=== PATIENT | female | born 1990 | race Two or more races ===

== ENCOUNTER 2018-07-19 13:46 | Emergency (ER) | payer MEDICAID, OTHER ==
[~2018-07-19] VITALS: Ht 149.9 cm; Wt 72.6 kg
[2018-07-19 16:14] VITALS: BP 108/60
== END 2018-07-19 17:56 | disposition home or self-care (01) ==
LOC: ER 13:46
DX: S46.911A Strain of unspecified muscle, fascia and tendon at shoulder and upper arm level, right arm, initial encounter (principal); S09.90XA Unspecified injury of head, initial encounter; W19.XXXA Unspecified fall, initial encounter; Y93.89 Activity, other specified; Y99.8 Other external cause status; Y92.89 Other specified places as the place of occurrence of the external cause
CPT/HCPCS: 70450; 71101; 73020

== ENCOUNTER 2021-04-12 13:52 | Emergency (ER) | payer MEDICAID ==
[~2021-04-12] VITALS: Ht 152.4 cm; Wt 63.5 kg
[2021-04-12 15:18] VITALS: BP 117/75
[2021-04-12 16:36] LABS: Urine Bacteria FEW /hpf (None Seen); Urine Blood Negative /uL (Negative); Urine Mucus FEW (None Seen); Urine Specific Gravity 1.014 (1.001-1.035); Urine WBC 1 /hpf (0 - 5)
[2021-04-12 17:04] LABS: Albumin 4.3 g/dL (3.4-5.0); Calcium 9.7 mg/dL (8.5-10.1); Potassium 4.1 mmol/L (3.5-5.1)
[2021-04-12 17:08] LABS: BUN/Creatinine Ratio 21.4; Bilirubin, Total 0.6 mg/dL (0.2-1.0); Total Protein 8.9 g/dL (6.4-8.2)
[2021-04-12 17:15] LABS: Basophils # (auto) 0.1 10 ^3/uL (0-0.2); Basophils % (auto) 0.5 % (0.0-2.0); Eosinophils # (auto) 0.1 10 ^3/uL (0-0.8); Eosinophils % (auto) 1.2 % (0.0-7.0); Hematocrit 46.4 % (36.0-46.0); Lymphocytes # (auto) 2.9 10 ^3/uL (0.4-5.4); Lymphocytes % (auto) 29.6 % (10.0-50.0); Mean Corpuscular Hemoglobin 31.2 pg (28.0-32.0); Mean Corpuscular Hgb Conc. 34.6 g/dL (32.0-36.0); Mean Corpuscular Volume 90.4 fL (80.0-100.0); Monocytes # (auto) 0.5 10 ^3/uL (0-1.3); Monocytes % (auto) 5.5 % (0.0-12.0); Neutrophils # (auto) 6.2 10 ^3/uL (1.6-8.6); Neutrophils % (auto) 63.2 % (37.0-80.0); Nucleated Red Blood Cells % 0.2 %; Red Blood Cells 5.13 10^6/uL (4.0-5.20); Red Cell Distribution Width 12.7 % (11.8-14.3); White Blood Cell 9.8 10^3/uL (4.4-10.8)
== END 2021-04-12 17:34 | disposition home or self-care (01) ==
LOC: ER 13:52
DX: E11.65 Type 2 diabetes mellitus with hyperglycemia (principal)
CPT/HCPCS: 36415; 80053; 81001; 84702; 85025

== ENCOUNTER 2023-09-17 14:52 | Emergency (ER) | payer MEDICAID ==
[~2023-09-17] VITALS: Ht 149.9 cm; Wt 63.2 kg
[2023-09-17 15:58] LABS: Basophils # (auto) 0 10 ^3/uL (0-0.2); Basophils % (auto) 0.5 % (0.0-2.0); Eosinophils # (auto) 0.1 10 ^3/uL (0-0.8); Eosinophils % (auto) 1.4 % (0.0-7.0); Hematocrit 46.3 % (36.0-46.0); Lymphocytes # (auto) 2.4 10 ^3/uL (0.4-5.4); Lymphocytes % (auto) 26.5 % (10.0-50.0); Mean Corpuscular Hemoglobin 31.3 pg (28.0-32.0); Mean Corpuscular Hgb Conc. 34.5 g/dL (32.0-36.0); Mean Corpuscular Volume 90.9 fL (80.0-100.0); Monocytes # (auto) 0.4 10 ^3/uL (0-1.3); Monocytes % (auto) 4.8 % (0.0-12.0); Neutrophils # (auto) 6.1 10 ^3/uL (1.6-8.6); Neutrophils % (auto) 66.8 % (37.0-80.0); Nucleated Red Blood Cells % 0.1 %; Red Blood Cells 5.09 10^6/uL (4.0-5.20); Red Cell Distribution Width 12.8 % (11.8-14.3); White Blood Cell 9.2 10^3/uL (4.4-10.8)
[2023-09-17 16:14] LABS: Alanine Aminotransferase 39 U/L (7-40); Albumin 4.7 g/dL (3.2-4.8); Alkaline Phosphatase 63 U/L (46-116); Anion Gap 6 (5-15); Aspartate Aminotransferase 21 U/L (13-40); BUN/Creatinine Ratio 14.1 (10.0-20.0); Bilirubin, Total 0.9 mg/dL (0.2-1.0); Blood Urea Nitrogen 9 mg/dL (9-23); Calcium 10.1 mg/dL (8.5-10.1); Carbon Dioxide 27 mmol/L (20-30); Chloride 104 mmol/L (98-107); Glucose 252 mg/dL (74-106); Magnesium 1.9 mg/dL (1.6-2.6); Potassium 3.7 mmol/L (3.5-5.1); Sodium 137 mmol/L (136-145); Total Protein 7.6 g/dL (5.7-8.2)
[2023-09-17 16:31] LABS: Urine Bacteria None Seen /hpf (None Seen)
[2023-09-17 16:52] LABS: Urine Blood Negative /uL (Negative); Urine Clarity Clear (Clear); Urine Color Light-Yellow (Yellow); Urine Protein, UAD Negative (Negative); Urine Specific Gravity 1.045 (1.001-1.035); Urine Urobilinogen Normal (Negative); Urine WBC <1 /hpf (0 - 5); Urine pH 5.5 (5.0-9.0)
[2023-09-17 17:01] LABS: Amphetamine Screen, Urine Neg (NEGATIVE); Barbiturate Scree,Urine Neg (NEGATIVE); Benzodiazephine Screen, Urine Neg (NEGATIVE); Cocaine Screen, Urine Neg (NEGATIVE); Opiate Scree,Urine Neg (NEGATIVE)
[2023-09-17 17:02] LABS: Cannabinoid Screen, Urine Neg (NEGATIVE); Phencyclidine Screen, Urine Neg (NEGATIVE)
[2023-09-17 18:24] VITALS: TEMP 97.7
[2023-09-17] MEDS: ASPirin 325 MG TAB PO ONE (18:30)
[2023-09-17] MEDS: NITROGLYCERIN 0.4 MG SL TAB SL ONE (18:30)
[2023-09-17 19:09] VITALS: BP 113/69; PULSE 71; RESP 20; O2SAT 98
== END 2023-09-17 19:15 | disposition home or self-care (01) ==
LOC: ER 14:56
DX: E07.9 Disorder of thyroid, unspecified (principal); R10.2 Pelvic and perineal pain; R07.89 Other chest pain; E11.9 Type 2 diabetes mellitus without complications; Z98.890 Other specified postprocedural states; Z79.899 Other long term (current) drug therapy
CPT/HCPCS: 36415; 71045; 80053; 80307; 81001; 83735; 83880; 84443; 84484; 84702; 85025; 85379; 93005

== ENCOUNTER 2024-10-13 20:32 | Inpatient (IN) | payer MEDICAID ==
[~2024-10-13] VITALS: Ht 149.9 cm; Wt 64.9 kg
--- NOTE | 2024-10-13 21:13 | ED.PDOC ---
General HPI Comments 34 year old female with a Hx of DM, High Lipids, and SHx of an Appendectomy, and a Cholecystectomy presents to the ED for the c/c of Right Sided Flank pain w/ associated RUQ ABD pain. Pt states that her pain started at approx 0100 yesterday morning, and has progressively worsened prompting her visit to the ED. Pt states that she did have an US done 2x weeks ago, but could not recall the results. No other associated symptoms, modifiers, recent injuries or sick contacts present at this time. Chief Complaint: Abdominal Pain Time Seen by MD: 21:09 Primary Care Provider: UNKNOWN Reviewed notes: Nurses Notes, Medications, Allergies Allergies: Coded Allergies: NO KNOWN ALLERGIES (Unverified , 07/19/18) Information Source: Patient Mode of Arrival: Ambulatory Severity: Moderate Inability to void: Mild Timing: Hours Duration: Since onset, Hours Has not urinated for: Hours Prehospital treatment: None Onset: Spontaneous Symptoms: None History of: None Location: Abdomen, (R) Flank associated signs and symptoms: Abdominal Pain, Nausea Past Medical History PAST MEDICAL HISTORY: DM, High Lipids Surgical History: Appendectomy, Cholecystectomy JOB COACH/JOB DEVELOPER History: Denies all JOB COACH/JOB DEVELOPER Hx Family History Family History: Reviewed,noncontributory to illness, Family hx of DM Social History Smoker: Non-Smoker Alcohol: Denies ETOH Use Drugs: Denies Drug Use Lives In: Home All Other Systems: Reviewed and Negative (comprehensive exam was negavtive accept what is in the HPI) Physical Exam General Appearance: No Apparent Distress, Obese HEENT: Other (Pupils and face symmetric. Moist mucous membranes.) Neck: Full Range of Motion, Normal Inspection Respiratory: Lungs Clear, No Accessory Muscle Use, No Respiratory Distress, Normal Breath Sounds Cardiovascular: No Edema, No JVD, Regular Rate/Rhythm Breast Exam: Deferred Gastrointestinal: RUQ, Soft, Tenderness (Right upper flank), Other (No CVA tenderness) Genitalia: Deferred Pelvic: Deferred Rectal: Deferred Extremities: Normal inspection, Normal range of motion, Non-tender, No pedal edema Neurologic: Alert (Oriented x4), Normal Affect, Normal Mood, Other (Ambulatory) Cerebellar Function: NOT DONE Reflexes: NOT DONE Skin: Dry, Normal Color, Warm Lymphatic: NOT DONE Was a procedure done? Was a procedure done?: No Differential Diagnosis Kidney stone (Female): Bowel obstruction, Ectopic , Hepatitis, Musculoskeletal pain, Ovarian torsion, Pancreatitis, Renal failure, Strain, Urinary obstruction, Urolithiasis Kidney stone (Male): Hepatitis Urinary Problem (Female): Impaction, Intrauterine , Urinary retention, Urolithiasis, UTI Other Differential Diagnosis Colitis, diverticular disease, biliary obstruction, among others X-Ray, Labs, Meds, VS Vital Signs Date Time Temp Pulse Resp B/P (MAP) Pulse Ox O2 Delivery O2 Flow Rate FiO2 10/13/24 22:19 64 16 110/64 10/13/24 20:50 97.9 68 18 123/76 (92) 98 97.9 Lab Test 10/13/24 21:48 10/13/24 21:14 10/13/24 21:00 10/13/24 20:59 Range/Units POC Glucose 349 H 315 H 70-106 mg/dl White Blood Count 9.3 4.4-10.8 10^3/uL Red Blood Count 5.33 H 4.0-5.20 10^6/uL Hemoglobin 16.7 H 12.2-16.2 g/dL Hematocrit 47.8 H 36.0-46.0 % Mean Corpuscular Volume 89.7 80.0-100.0 fL Mean Corpuscular Hemoglobin 31.4 28.0-32.0 pg Mean Corpuscular Hemoglobin Concent 34.9 32.0-36.0 g/dL Red Cell Distribution Width 12.5 11.8-14.3 % Platelet Count 319 140-450 10^3/uL Mean Platelet Volume 8.1 6.9-10.8 fL Neutrophils (%) (Auto) 63.9 37.0-80.0 % Lymphocytes (%) (Auto) 28.9 10.0-50.0 % Monocytes (%) (Auto) 5.5 0.0-12.0 % Eosinophils (%) (Auto) 1.1 0.0-7.0 % Basophils (%) (Auto) 0.6 0.0-2.0 % Neutrophils # (Auto) 6.0 1.6-8.6 10 ^3/uL Lymphocytes # (Auto) 2.7 0.4-5.4 10 ^3/uL Monocytes # (Auto) 0.5 0-1.3 10 ^3/uL Eosinophils # (Auto) 0.1 0-0.8 10 ^3/uL Basophils # (Auto) 0.1 0-0.2 10 ^3/uL Nucleated Red Blood Cells 0.1 % Sodium Level 135 L 136-145 mmol/L Potassium Level 3.7 3.5-5.1 mmol/L Chloride Level 99 98-107 mmol/L Carbon Dioxide Level 26 20-31 mmol/L Anion Gap 10 5-15 Blood Urea Nitrogen 8 L 9-23 mg/dL Creatinine 0.72 0.550-1.02 mg/dL Glomerular Filtration Rate Calc 111 >90 mL/min BUN/Creatinine Ratio 11.1 10.0-20.0 Serum Glucose 292 H 74-106 mg/dL Calcium Level 10.4 8.7-10.4 mg/dL Total Bilirubin 0.9 0.2-1.0 mg/dL Aspartate Amino Transferase (AST) 19 13-40 U/L Alanine Aminotransferase (ALT) 36 7-40 U/L Alkaline Phosphatase 69 46-116 U/L Total Protein 8.4 H 5.7-8.2 g/dL Albumin 5.1 H 3.2-4.8 g/dL Lipase 80 H 12-53 U/L Urine Color Yellow Yellow Urine Clarity Clear Clear Urine pH 5.0 5.0-9.0 Urine Specific [place] 1.048 H 1.001-1.035 Urine Protein Negative Negative Urine Ketones Negative Negative Urine Blood Negative Negative /uL Urine Nitrite Negative Negative Urine Bilirubin Negative Negative Urine Urobilinogen Normal Negative mg/dL Urine Leukocyte Esterase Negative Negative /uL Urine RBC <1 0 - 4 /hpf Urine Microscopic WBC < 1 0-5 /HPF Urine Squamous Epithelial Cells Mod <5 /hpf Urine Bacteria None seen None Seen /hpf Urine Glucose 4+ H Normal mg/dL Urine Test Negative Negative Current Medications Medications (Trade) Dose Ordered Sig/Chastity Route Start Time Stop Time Status Last Admin Sodium Chloride 2,000 ml @ 1,000 mls/hr Q2H ONCE IV 10/13/24 21:15 10/13/24 23:14 10/13/24 22:18 Ondansetron HCl (Zofran) 4 mg ONCE ONCE IV 10/13/24 21:15 10/13/24 21:16 DC 10/13/24 22:19 Morphine Sulfate 4 mg ONCE ONCE IV 10/13/24 21:15 10/13/24 21:16 DC 10/13/24 22:19 Insulin Human Regular (InsuLIN R) 4 units ONCE ONCE IV 10/13/24 21:15 10/13/24 21:16 DC 10/13/24 22:19 PATIENT: ALEJANDRO BAILEY ACCT: [id number] UNIT: [id number] : 1990 LOC: ER ROOM / BED: / AGE / SEX: 34 / F ADM STATUS: REG ER SERVICE 05 ORDERING PHYSICIAN: AUGUST CONTRERAS MD PROCEDURE(s): ABPL - CT AB PEL WO CON-NO ORAL OR IV REASON: RUQ pain ORDER NUMBER(s): [id number], ACCESSION NUMBER(s): [id number] CT SCAN ABDOMEN AND PELVIS WITHOUT CONTRAST CLINICAL HISTORY: RUQ pain TECHNIQUE: Helical axial images are obtained from the lung bases through the pelvis without oral contrast. No intravenous contrast was administered. Coronal and sagittal reformatted images were generated from thin section reconstructions. One or more of the following radiation dose reduction techniques were used for this examination: automated exposure control, adjustment of the mA and/or kV according to patient size, use of iterative reconstruction technique. COMPARISON: None FINDINGS: LOWER THORAX: Lung bases are grossly clear. ABDOMEN AND PELVIS: Evaluation of visceral and vascular structures is limited due to lack of contrast administration. As visualized, the unenhanced liver, spleen, pancreas and adrenals appear grossly unremarkable. The gallbladder is surgically absent. No hydroureteronephrosis or sizable, obstructing urinary tract calculi identified. No evidence of abdominal aortic aneurysm. No evidence of bowel obstruction. The appendix is not visualized and may be surgically absent. No free intraperitoneal air or fluid identified. No sizable bladder calculus. T-shaped intrauterine device noted within the fundus. No destructive osseous lesions identified. IMPRESSION: No bowel obstruction, free intraperitoneal air/fluid or sizable inflammatory collections identified on this noncontrast examination. X-Ray, Labs, Meds, VS Comment 34-year-old female with a history of diabetes, dyslipidemia and status post appendectomy and cholecystectomy complaining of right upper quadrant pain radiating to the right flank Vitals unremarkable Exam remarkable for right upper quadrant and right upper flank tenderness to palpation Rhythm strip independently interpreted by me: Sinus rhythm, rate 68, no ectopy. CT abdomen and pelvis IMPRESSION: No bowel obstruction, free intraperitoneal air/fluid or sizable inflammatory collections identified on this noncontrast examination. CBC unremarkable, metabolic panel remarkable for sodium 135, glucose 292, lipase elevated at 80, urine negative, UA 4+ glucose, otherwise unremarkable Patient treated with the following in the ED: 2 L 0.9 normal saline IV bolus, morphine 4 mg IV, Zofran 4 mg IV, regular insulin 4 units IV On re-evaluation, pain has improved. Vitals were stable. Plan is to admit the patient for pain control and GI evaluation. Time of 1ST Reevaluation: 21:39 Reevaluation 1ST: Unchanged Patient Education/Counseling: Diagnosis, Treatment, Need For Follow Up Family Education/Counseling: No Family Present SEPSIS Sepsis Screen Date sepsis recognized/suspect: Oct 13, 2024 Time Sepsis recognized/suspect: 2049 Recent Procedure: No On Antibiotic Therapy: No Respiratory Rate >20: No Heart Rate >90: No Temp<36 C (96.8 F) or >38.3 C: No SBP <90 or MAP <65 mmHG: No New Acute Mental Status Change: No Is the patient on CPAP, BIPAP,: No Physician Orders Ct Ab Pel Wo Con-No Oral Or Iv (10/13/24 21:06) Sodium Chloride 0.9% (10/13/24 21:15) Vital Signs Date Time Temp Pulse Resp B/P (MAP) Pulse Ox O2 Delivery O2 Flow Rate FiO2 10/13/24 22:19 64 16 110/64 10/13/24 20:50 97.9 68 18 123/76 (92) 98 97.9 Laboratory Tests Test 10/13/24 21:14 White Blood Count 9.3 10^3/uL (4.4-10.8) Medications Medications Dose Ordered Sig/Chastity Route Start Time Stop Time Status Last Admin Dose Admin Insulin Human Regular 4 units ONCE ONCE IV 10/13/24 21:15 10/13/24 21:16 DC 10/13/24 22:19 Morphine Sulfate 4 mg ONCE ONCE IV 10/13/24 21:15 10/13/24 21:16 DC 10/13/24 22:19 Ondansetron HCl 4 mg ONCE ONCE IV 10/13/24 21:15 10/13/24 21:16 DC 10/13/24 22:19 Sodium Chloride 2,000 ml @ 1,000 mls/hr Q2H ONCE IV 10/13/24 21:15 10/13/24 23:14 10/13/24 22:18 Departure 1 Departure Time of Disposition: 22:33 Impression: Primary Impression: Acute pancreatitis Qualified Codes: K85.90 - Acute pancreatitis without necrosis or infection, unspecified Disposition: 09 ADMITTED INPATIENT Admit to: Med Surg Condition: Guarded Critical Care Note Critical Care Time?: No Stability Stability form required: No Heart Score Heart Score: Heart Score Response (Comments) Value History N/A 0 EKG N/A 0 Age N/A 0 Risk Factors N/A 0 Troponin N/A 0 Total 0 I personally scribed for AUGUST CONTRERAS MD ([facility]) on 10/13/24 at 21:13. Electronically submitted by Paulo Wei ([email or web address]). I personally scribed for AUGUST CONTRERAS MD ([facility]) on 10/13/24 at 22:22. Electronically submitted by Paulo Wei ([email or web address]). I personally scribed for AUGUST CONTRERAS MD ([facility]) on 10/13/24 at 22:35. Electronically submitted by Paulo Wei ([email or web address]). AUGUST CONTRERAS MD Oct 13, 2024 21:13
[2024-10-13 21:50] LABS: Hematocrit 47.8 % (36.0-46.0); Hemoglobin 16.7 g/dL (12.2-16.2); Mean Corpuscular Hemoglobin 31.4 pg (28.0-32.0); Mean Corpuscular Volume 89.7 fL (80.0-100.0); Nucleated Red Blood Cells % 0.1 %
[2024-10-13 22:03] LABS: Alanine Aminotransferase 36 U/L (7-40); Alkaline Phosphatase 69 U/L (46-116); Anion Gap 10 (5-15); BUN/Creatinine Ratio 11.1 (10.0-20.0); Calcium 10.4 mg/dL (8.7-10.4); Carbon Dioxide 26 mmol/L (20-31); Chloride 99 mmol/L (98-107); Potassium 3.7 mmol/L (3.5-5.1)
[2024-10-13 22:04] LABS: Bilirubin, Total 0.9 mg/dL (0.2-1.0)
[2024-10-13 22:05] LABS: Albumin 5.1 g/dL (3.2-4.8); Blood Urea Nitrogen 8 mg/dL (9-23); Glucose 292 mg/dL (74-106); Lipase 80 U/L (12-53); Sodium 135 mmol/L (136-145); Total Protein 8.4 g/dL (5.7-8.2)
[2024-10-13 22:08] LABS: Urine Protein, UAD Negative (Negative)
[2024-10-13] MEDS: SODIUM CHLORIDE 0.9% 2,000 ML IV ONE (22:18)
[2024-10-13] MEDS: ONDANSETRON HCL 4 MG/2 ML VIAL IV ONE (22:19)
[2024-10-13] MEDS: InsuLIN REG 1unit/0.01ml Soln (100units/ml) IV ONE (22:19)
[2024-10-13] MEDS: MORPHINE SULFATE 4 MG/ML SYR/VIAL IV ONE (22:19)
--- NOTE | 2024-10-13 22:19 | DVH ---
CT SCAN ABDOMEN AND PELVIS WITHOUT CONTRAST CLINICAL HISTORY: RUQ pain TECHNIQUE: Helical axial images are obtained from the lung bases through the pelvis without oral cont rast. No intravenous contrast was administered. Coronal and sagittal reformatted images were generate d from thin section reconstructions. One or more of the following radiation dose reduction techniques were used for this examination: automated exposure control, adjustment of the mA and/or kV according to patient size, use of iterative reconstruction technique. COMPARISON: None FINDINGS: LOWER THORAX: Lung bases are grossly clear. ABDOMEN AND PELVIS: Evaluation of visceral and vascular structures is limited due to lack of contrast administration. As visualized, the unenhanced liver, spleen, pancreas and adrenals appear grossly unremarkable. The g allbladder is surgically absent. No hydroureteronephrosis or sizable, obstructing urinary tract calculi identified. No evidence of abdominal aortic aneurysm. No evidence of bowel obstruction. The appendix is not visualized and may be surgically absent. No buddy e intraperitoneal air or fluid identified. No sizable bladder calculus. T-shaped intrauterine device noted within the fundus. No destructive osseous lesions identified. IMPRESSION: No bowel obstruction, free intraperitoneal air/fluid or sizable inflammatory collections identified o n this noncontrast examination.
[2024-10-13] MEDS ORDERED: MORPHINE SULFATE INJ 2 MG/ml SYRG IV PRN ×2 (22:45→23:15)
[2024-10-13] MEDS ORDERED: DEXTROSE (50%) 50ML SYRG IV PRN (22:45)
--- NOTE | 2024-10-13 23:08 | DVHHP2 ---
History of Present Illness Reason for Visit: Acute abdominal pain History of Present Illness The patient is a 34-year-old female with past medical history of diabetes mellitus and hyperlipidemia who presented to [facility] ED with complaint of abdominal pain. Patient reports she has been experiencing right- sided flank pain, radiating to right upper quadrant, rating 8/10 numeric scale, getting worse that prompted this visit. Patient was seen and evaluated in the ED, laboratory data shows WBC 9.3, platelets 319, sodium 135, potassium 3.7, BUN 8, creatinine 0.72, glucose 292, calcium 10.4, protein 8.4, albumin 5.1, lipase 80, blood pressure 110/64, heart rate 65, temperature 97.9 F, O2 saturation 98% on room air. Abdomen/pelvis CT showed no obstruction, free intraperitoneal air/fluid sizable inflammatory collections identified. Please see medication orders section in the computer. On my assessment, patient denied chest pain, no headache, no dizziness, no diaphoresis, no shortness of breath, no nausea, no vomiting, no fever, no chills. Patient was admitted for further evaluation and medical management. Past Medical History DM, High Lipids Past Surgical History Appendectomy, Cholecystectomy Family History Reviewed, noncontributory to the management of this case. Past Social History The patient lives at home, denies smoking, alcohol or illicit drugs abuse. Review of Systems Constitutional: Yes: Weakness; No: Fever, Chills, Sweats, Malaise, Other Eyes: No: Pain, Vision change, Conjunctivae inflammation, Eyelid inflammation, Other, Redness ENT: No: Ear pain, Ear discharge, Nose pain, Nose discharge, Nose congestion, Mouth pain, Mouth swelling, Throat pain, Throat swelling, Other Respiratory: No: Cough, Dry, Shortness of breath, SOB with excertion, Wheezing, Hemoptysis, Pleuritic Pain, Sputum, Wheezing, Other Cardiovascular: No: Chest Pain, Palpitations, Orthopnea, Paroxysmal Noc. Dyspnea, Edema, Lt Headedness, Other Gastrointestinal: Abdominal Pain; No: Nausea, Vomiting, Diarrhea, Constipation, Melena, Hematochezia, Other Genitourinary: No Dysuria, No Frequency, No Incontinence, No Hematuria, No Retention, No Other Musculoskeletal: No: other, neck pain, shoulder pain, arm pain, back pain, hand pain, leg pain, foot pain Skin: No: Rash, Lesions, Jaundice, Bruising, Other Neurological: No: Weakness, Numbness, Incoordination, Change in speech, Confusion, Seizures, Other Allergies: Coded Allergies: NO KNOWN ALLERGIES (Unverified , 07/19/18) Medications Current Medications Medications Dose Ordered Sig/Chastity Route Start Time Stop Time Status Last Admin Dose Admin Atorvastatin Calcium 10 mg HS PO 10/14/24 22:00 Pantoprazole Sodium 40 mg DAILY IV 10/14/24 10:00 Diagnostic Test (Pha) 1 strip IQ4HR 10/14/24 00:00 Insulin Human Regular IQ4HR SC 10/14/24 00:00 Dextrose 50 ml UD PRN IV 10/13/24 22:45 Sodium Chloride 1,000 ml @ 60 mls/hr [id number] IV 10/13/24 22:45 Acetaminophen/ Hydrocodone Bitart 1 tab Q4HP PRN PO 10/13/24 22:45 Ondansetron HCl 4 mg Q4HP PRN IV 10/13/24 22:45 Docusate Sodium 100 mg BIDPRN PRN PO 10/13/24 22:45 Acetaminophen 650 mg Q6HP PRN PO 10/13/24 22:45 Morphine Sulfate 2 mg Q4HPRN PRN IV 10/13/24 22:45 Exam Vital Signs Vital Signs Date Time Temp Pulse Resp B/P (MAP) Pulse Ox O2 Delivery O2 Flow Rate FiO2 10/13/24 22:19 64 16 110/64 10/13/24 20:50 97.9 98 97.9 General Appearance: Alert, Oriented X3, Cooperative, No acute distress HEENT: Atraumatic, PERRLA, EOMI, Mucous membr. moist/pink Respiratory: Normal air movement Cardiovascular: Regular rate, Normal S1, Normal S2, No murmurs Abdominal: Normal bowel sounds, Soft, No hepatospenomegaly, No masses, Other (Reports tenderness) Extremities: No clubbing, No cyanosis, No edema, Normal pulses, No tenderness/swelling Skin: No rashes, No breakdown, No significant lesion Neuro: Normal gait, Normal speech, Strength at 5/5 X4 ext, Normal tone, Sensation intact, Cranial nerves 3-12 NL, Reflexes 2+ Psych/Mental Status: Mental status NL, Mood NL Labs/Xrays Labs Test 10/13/24 21:48 10/13/24 21:14 10/13/24 21:00 Range/Units POC Glucose 349 H 70-106 mg/dl White Blood Count 9.3 4.4-10.8 10^3/uL Red Blood Count 5.33 H 4.0-5.20 10^6/uL Hemoglobin 16.7 H 12.2-16.2 g/dL Hematocrit 47.8 H 36.0-46.0 % Mean Corpuscular Volume 89.7 80.0-100.0 fL Mean Corpuscular Hemoglobin 31.4 28.0-32.0 pg Mean Corpuscular Hemoglobin Concent 34.9 32.0-36.0 g/dL Red Cell Distribution Width 12.5 11.8-14.3 % Platelet Count 319 140-450 10^3/uL Mean Platelet Volume 8.1 6.9-10.8 fL Neutrophils (%) (Auto) 63.9 37.0-80.0 % Lymphocytes (%) (Auto) 28.9 10.0-50.0 % Monocytes (%) (Auto) 5.5 0.0-12.0 % Eosinophils (%) (Auto) 1.1 0.0-7.0 % Basophils (%) (Auto) 0.6 0.0-2.0 % Neutrophils # (Auto) 6.0 1.6-8.6 10 ^3/uL Lymphocytes # (Auto) 2.7 0.4-5.4 10 ^3/uL Monocytes # (Auto) 0.5 0-1.3 10 ^3/uL Eosinophils # (Auto) 0.1 0-0.8 10 ^3/uL Basophils # (Auto) 0.1 0-0.2 10 ^3/uL Nucleated Red Blood Cells 0.1 % Sodium Level 135 L 136-145 mmol/L Potassium Level 3.7 3.5-5.1 mmol/L Chloride Level 99 98-107 mmol/L Carbon Dioxide Level 26 20-31 mmol/L Anion Gap 10 5-15 Blood Urea Nitrogen 8 L 9-23 mg/dL Creatinine 0.72 0.550-1.02 mg/dL Glomerular Filtration Rate Calc 111 >90 mL/min BUN/Creatinine Ratio 11.1 10.0-20.0 Serum Glucose 292 H 74-106 mg/dL Calcium Level 10.4 8.7-10.4 mg/dL Total Bilirubin 0.9 0.2-1.0 mg/dL Aspartate Amino Transferase (AST) 19 13-40 U/L Alanine Aminotransferase (ALT) 36 7-40 U/L Alkaline Phosphatase 69 46-116 U/L Total Protein 8.4 H 5.7-8.2 g/dL Albumin 5.1 H 3.2-4.8 g/dL Lipase 80 H 12-53 U/L Urine Color Yellow Yellow Urine Clarity Clear Clear Urine pH 5.0 5.0-9.0 Urine Specific [employer] 1.048 H 1.001-1.035 Urine Protein Negative Negative Urine Ketones Negative Negative Urine Blood Negative Negative /uL Urine Nitrite Negative Negative Urine Bilirubin Negative Negative Urine Urobilinogen Normal Negative mg/dL Urine Leukocyte Esterase Negative Negative /uL Urine RBC <1 0 - 4 /hpf Urine Microscopic WBC < 1 0-5 /HPF Urine Squamous Epithelial Cells Mod <5 /hpf Urine Bacteria None seen None Seen /hpf Urine Glucose 4+ H Normal mg/dL Urine Test Negative Negative PATIENT: ALEJANDRO BAILEY ACCT: [id number] UNIT: [id number] : 1990 LOC: ER ROOM / BED: / AGE / SEX: 34 / F ADM STATUS: REG ER SERVICE 05 ORDERING PHYSICIAN: AUGUST CONTRERAS MD PROCEDURE(s): ABPL - CT AB PEL WO CON-NO ORAL OR IV REASON: RUQ pain ORDER NUMBER(s): [id number], ACCESSION NUMBER(s): [id number] CT SCAN ABDOMEN AND PELVIS WITHOUT CONTRAST CLINICAL HISTORY: RUQ pain TECHNIQUE: Helical axial images are obtained from the lung bases through the pelvis without oral contrast. No intravenous contrast was administered. Coronal and sagittal reformatted images were generated from thin section reconstructions. One or more of the following radiation dose reduction techniques were used for this examination: automated exposure control, adjustment of the mA and/or kV according to patient size, use of iterative reconstruction technique. COMPARISON: None FINDINGS: LOWER THORAX: Lung bases are grossly clear. ABDOMEN AND PELVIS: Evaluation of visceral and vascular structures is limited due to lack of contrast administration. As visualized, the unenhanced liver, spleen, pancreas and adrenals appear grossly unremarkable. The gallbladder is surgically absent. No hydroureteronephrosis or sizable, obstructing urinary tract calculi identified. No evidence of abdominal aortic aneurysm. No evidence of bowel obstruction. The appendix is not visualized and may be surgically absent. No free intraperitoneal air or fluid identified. No sizable bladder calculus. T-shaped intrauterine device noted within the fundus. No destructive osseous lesions identified. IMPRESSION: No bowel obstruction, free intraperitoneal air/fluid or sizable inflammatory collections identified on this noncontrast examination. SEPSIS Sepsis Screen Date sepsis recognized/suspect: Oct 13, 2024 Time Sepsis recognized/suspect: 2049 Recent Procedure: No On Antibiotic Therapy: No Respiratory Rate >20: No Heart Rate >90: No Temp<36 C (96.8 F) or >38.3 C: No SBP <90 or MAP <65 mmHG: No New Acute Mental Status Change: No Is the patient on CPAP, BIPAP,: No Physician Orders Ct Ab Pel Wo Con-No Oral Or Iv (10/13/24 21:06) Sodium Chloride 0.9% (10/13/24 21:15) Consistent Carb(Ccho)Diabetes (10/14/24 Breakfast) Atorvastatin (Lipitor) (10/14/24 22:00) Pantoprazole (Protonix) (10/14/24 10:00) Glucose Blood (Accu-Chek Comfort Curve T (10/14/24 00:00) Insulin R (Human) (Insulin R) (10/14/24 00:00) Dextrose 50% Syringe (10/13/24 22:45) Allergies (10/13/24 22:39) Code Status (10/13/24 22:39) Sodium Chloride 0.9% (10/13/24 22:45) Oxygen Per Hour (10/13/24 22:39) Hydrocodone-Acet 5/325mg Tab ([place] 5/32 (10/13/24 22:45) Ondansetron Hcl (Zofran) (10/13/24 22:45) Docusate Sodium Capsule (Colace Capsule) (10/13/24 22:45) Complete Blood Count (10/14/24 04:00) Comprehensive Metabolic Panel (10/14/24 04:00) Condition: Serious (10/13/24 22:39) Acetaminophen Tablet (Tylenol Tablet) (10/13/24 22:45) Clear Liq Diet (10/14/24 Breakfast) Bedrest With Bathroom Privileg (10/13/24 22:39) Morphine Sulfate Injection (10/13/24 22:45) Sequential Compression Device (10/13/24 ) Vital Signs Date Time Temp Pulse Resp B/P (MAP) Pulse Ox O2 Delivery O2 Flow Rate FiO2 10/13/24 22:19 64 16 110/64 10/13/24 20:50 97.9 68 18 123/76 (92) 98 97.9 Laboratory Tests Test 10/13/24 21:14 White Blood Count 9.3 10^3/uL (4.4-10.8) Medications Medications Dose Ordered Sig/Chastity Route Start Time Stop Time Status Last Admin Dose Admin Insulin Human Regular 4 units ONCE ONCE IV 10/13/24 21:15 10/13/24 21:16 DC 10/13/24 22:19 4 UNITS Morphine Sulfate 4 mg ONCE ONCE IV 10/13/24 21:15 10/13/24 21:16 DC 10/13/24 22:19 4 MG Ondansetron HCl 4 mg ONCE ONCE IV 10/13/24 21:15 10/13/24 21:16 DC 10/13/24 22:19 4 MG Sodium Chloride 2,000 ml @ 1,000 mls/hr Q2H ONCE IV 10/13/24 21:15 10/13/24 23:14 10/13/24 22:18 1,000 MLS/HR Assessment/Plan Assessment/Plan Acute abdominal pain Acute pancreatitis Diabetes mellitus with hyperglycemia Acute pancreatitis without necrosis or infection, unspecified Plan 1. Admit to med surge unit 2. Breathing treatment 3. Pain control management 4. Management of fluids and electrolytes 5. Consultation for hospitalist 6. Diagnostic tests abdomen/pelvis CT 7. DVT prophylaxis on SCDs 8. Repeat labs CBC, CMP in a.m. 9. Continue with current medical management 10. Treatment plan discussed with patient and RN. Patient verbalized understanding. Plan discussed with: Patient, Other (RN) My Orders Orders - DMITRY COTE DNP Procedure Category Date Status Time Consistent DIET 10/14/24 Transmitted Carb(Ccho)Diabetes Breakfast Atorvastatin (Lipitor) PHA 10/14/24 In Process 22:00 Pantoprazole PHA 10/14/24 In Process (Protonix) 10:00 Glucose Blood PHA 10/14/24 In Process (Accu-Chek Comfort 00:00 Insulin R (Human) PHA 10/14/24 In Process (Insulin R) 00:00 Dextrose 50% Syringe PHA 10/13/24 In Process 22:45 Allergies ANGELINA 10/13/24 In Process 22:39 Code Status CODE 10/13/24 Transmitted 22:39 Sodium Chloride 0.9% PHA 10/13/24 In Process 22:45 Oxygen Per Hour RT 10/13/24 Transmitted 22:39 Hydrocodone-Acet PHA 10/13/24 In Process 5/325mg Tab ([place] 22:45 Ondansetron Hcl PHA 10/13/24 In Process (Zofran) 22:45 Docusate Sodium PHA 10/13/24 In Process Capsule (Colace 22:45 Complete Blood Count LAB 10/14/24 Verified 04:00 Comprehensive LAB 10/14/24 Verified Metabolic Panel 04:00 Condition: Serious ANGELINA 10/13/24 In Process 22:39 Acetaminophen Tablet PHA 10/13/24 In Process (Tylenol Tablet) 22:45 Clear Liq Diet DIET 10/14/24 Transmitted Breakfast Bedrest With Bathroom ANGELINA 10/13/24 In Process Privileg 22:39 Morphine Sulfate PHA 10/13/24 In Process Injection 22:45 Sequential ANGELINA 10/13/24 In Process Compression Device Problem List: (1) Acute abdominal pain (2) Acute pancreatitis (3) Diabetes mellitus with hyperglycemia (4) Acute pancreatitis without necrosis or infection, unspecified Date of Service: Oct 13, 2024 Billing Provider: DMITRY COTE DNP Common Visit Codes: 12435-[id number] INP/OBS CARE (HIGH) DMITRY COTE DNP Oct 13, 2024 23:08
[2024-10-13] MEDS: PANTOPRAZOLE 40 MG/10 ML VIAL INJ IV ONE (23:09)
[2024-10-13 23:11] VITALS: PULSE 64; RESP 16; O2SAT 98
[2024-10-13] MEDS ORDERED: NITROGLYCERIN 0.4 MG SL TAB SL PRN (23:15)
[2024-10-13] MEDS: SODIUM CHLORIDE 0.9% 1,000 ML IV SCH (23:51)
[2024-10-14] VITALS (10 sets, daily range): BP systolic 100–140; BP diastolic 62–75; PULSE 57–72; RESP 17–18; TEMP 97.7–98.2; O2SAT 97–99
[2024-10-14] MEDS: ACCU-CHEK COMFORT CURVE STRIP VI SCH (00:07)
[2024-10-14] MEDS: InsuLIN REG 1unit/0.01ml Soln (100units/ml) SC SCH (00:08)
[2024-10-14] MEDS: HYDROcodone-ACET 5/325MG TAB PO PRN (02:53)
[2024-10-14] MEDS: ONDANSETRON HCL 4 MG/2 ML VIAL IV PRN (02:54)
[2024-10-14 09:28] LABS: Hematocrit 44.1 % (36.0-46.0); Hemoglobin 15.3 g/dL (12.2-16.2); Mean Corpuscular Hemoglobin 31.1 pg (28.0-32.0); Mean Corpuscular Volume 89.4 fL (80.0-100.0); Nucleated Red Blood Cells % 0.0 %
[2024-10-14] MEDS: PANTOPRAZOLE 40 MG/10 ML VIAL INJ IV SCH (09:40)
[2024-10-14 10:15] LABS: Alanine Aminotransferase 36 U/L (7-40); Albumin 4.4 g/dL (3.2-4.8); Alkaline Phosphatase 57 U/L (46-116); Anion Gap 9 (5-15); BUN/Creatinine Ratio 16.4 (10.0-20.0); Calcium 10.0 mg/dL (8.7-10.4); Carbon Dioxide 24 mmol/L (20-31); Total Protein 7.1 g/dL (5.7-8.2)
[2024-10-14 10:16] LABS: Bilirubin, Total 0.9 mg/dL (0.2-1.0)
[2024-10-14 10:17] LABS: Blood Urea Nitrogen 9 mg/dL (9-23); Chloride 104 mmol/L (98-107); Glucose 173 mg/dL (74-106); Potassium 3.6 mmol/L (3.5-5.1); Sodium 137 mmol/L (136-145)
[2024-10-14] MEDS ORDERED: cefTRIAXone 1GM/50ML D5W 50 ML IV SCH (13:45)
[2024-10-14] MEDS: METOCLOPRAMIDE HCL 5MG/ml INJ 2ml VIAL IV ONE ×2 (13:45→15:27)
[2024-10-14] MEDS ORDERED: D5W/SOD CHL 0.45% 1,000 ML IV SCH (13:45)
[2024-10-14] MEDS: D5W/SOD CHL 0.45% 1,000 ML IV SCH (15:19)
[2024-10-14] MEDS: cefTRIAXone 1GM/50ML D5W 50 ML IV SCH (15:33)
--- NOTE | 2024-10-14 17:03 | DVHPNRES ---
Progress Note Date Seen: Oct 14, 2024 Resident Creating Document: LUAN RHOADES RESIDENT Medical Necessity Reason Pt with a Central, PICC or Fol: No Subjective Review of Systems Twila Celestin is a 34-year-old female with past medical history of diabetes mellitus and hyperlipidemia who presented to [facility] ED with complaint of intractable abdominal pain. Patient reports she has been experiencing right-sided flank pain, radiating to right upper quadrant, getting worse since 2 days that prompted this visit. She has associated nausea. No history of diarrhea, vomiting, fever, rash. She had an ultrasound done 2 weeks back but did not get a result. Her labs shows WBC 9.3, platelets 319, sodium 135, potassium 3.7, BUN 8, creatinine 0.72, glucose 292, calcium 10.4, protein 8.4, albumin 5.1, lipase 80, blood pressure 110/64, heart rate 65, temperature 97.9 F, O2 saturation 98% on room air. Abdomen/pelvis CT showed no obstruction, free intraperitoneal air/fluid sizable inflammatory collections identified. Personal history: Nonsmoker, nonalcoholic, no recreational drug use. She lives in a house. She has 4 children. Allergies none Past surgical history: Breast lift, tummy tuck, appendectomy, cholecystectomy ROS: Constitutional: Complains of chills. HEENT: Denies changes in vision and hearing. Respiratory: Denies shortness of breath and cough Cardiovascular: Denies chest discomfort or palpitations GI: Complains of abdominal pain, nausea. Denies vomiting and diarrhea. : Denies dysuria and urinary frequency. Musculoskeletal: Denies myalgias and joint pain Skin: Denies rash and pruritus. Neurological: Denies dizziness, headache, vision or hearing problems Objective vital signs Vital Sign Date Time Temp Pulse Resp B/P (MAP) Pulse Ox O2 Delivery O2 Flow Rate FiO2 10/14/24 13:00 97.7 63 18 140/69 (92) 98 97.7 10/14/24 03:29 Room Air* 0 21 Total Intake and Output 10/13/24 10/13/24 10/14/24 15:00 23:00 07:00 Intake Total 2000 ml Balance 2000 ml medications Current Medications Medications Dose Ordered Sig/Chastity Route Start Time Stop Time Status Last Admin Dose Admin Atorvastatin Calcium 10 mg HS PO 10/14/24 22:00 Pantoprazole Sodium 40 mg DAILY IV 10/14/24 10:00 10/14/24 09:40 40 MG Diagnostic Test (Pha) 1 strip IQ4HR 10/14/24 00:00 10/14/24 12:07 1 STRIP Insulin Human Regular IQ4HR SC 10/14/24 00:00 10/14/24 12:10 3 UNITS Dextrose 50 ml UD PRN IV 10/13/24 22:45 Acetaminophen/ Hydrocodone Bitart 1 tab Q4HP PRN PO 10/13/24 22:45 Ondansetron HCl 4 mg Q4HP PRN IV 10/13/24 22:45 10/14/24 09:51 4 MG Docusate Sodium 100 mg BIDPRN PRN PO 10/13/24 22:45 Acetaminophen 650 mg Q6HP PRN PO 10/13/24 22:45 Morphine Sulfate 2 mg Q4HPRN PRN IV 10/13/24 22:45 Nitroglycerin 0.4 mg Q5MINP PRN SL 10/13/24 23:15 Morphine Sulfate 2 mg Q30M PRN IV 10/13/24 23:15 Ceftriaxone Sodium 50 ml @ 100 mls/hr DAILY@1515 IV 10/14/24 15:15 10/14/24 15:33 100 MLS/HR Metronidazole 100 ml @ 100 mls/hr Q8H IV 10/14/24 17:00 Dextrose/Sodium Chloride 1,000 ml @ 75 mls/hr [id number] IV 10/14/24 15:20 10/14/24 15:19 75 MLS/HR Examination General: Patient alert and oriented in person, place and time. Patient following commands. HEENT: Normocephalic, atraumatic, moist mucous membranes Respiratory/pulmonary: Clear lungs bilaterally, no associated crackles or wheezes. Cardiovascular: Normal heart sounds S1 and S2 with no associated murmurs. Scars below the breast, healed. Abdomen: Abdominal tenderness in the right upper quadrant and in the flank area. No guarding. Scar in lower abdominal area. Extremities: There is no peripheral edema present at the lower extremities. Peripheral Pulses: 3+ Radial (R). 3+ Radial (L). 3+ Dorsalis pedis (R). 3+ Dorsalis pedis(L) Skin: No rashes or pruritus, there is no sacral edema present at this time. Neurological: Intact cranial nerves with no focal neurologic deficits laboratory and microbiology Laboratory Tests 10/14/24 08:53 Test 10/14/24 08:53 Range/Units Serum Glucose 173 H 74-106 mg/dL Problem List/Assessment/Plan Problem List/Assessment/Plan #Intractable abdominal pain, due to following #Possible pancreatitis -Lipase borderline high #Gastroenteritis, infectious, possible -Start ceftriaxone, metronidazole -Continue IV fluids. -Continue Zofran as needed -Continue pain management with morphine, [place] as needed -Continue Protonix as needed #Diabetes mellitus -Start sliding scale insulin #Hyperlipidemia -Continue atorvastatin Goals of care discussed with patient at bedside for more than 35 minutes Full code Discussed with Dr. Whyte Plan discussed with: Patient My Orders My Orders Orders - LUAN RHOADES RESIDENT Procedure Category Date Status Time Npo Except Ice Chips ANGELINA 10/14/24 In Process 13:51 Npo (Nothing By DIET 10/14/24 Transmitted Mouth) Diet Dinner Drug Screen LAB 10/14/24 Logged 13:59 Ceftriaxone 1gm/50ml PHA 10/14/24 In Process D5w (Rocephin) 15:15 Metronidazole PHA 10/14/24 In Process 500mg/100ml (Flagyl 17:00 D5w/Sod Chl 0.45% PHA 10/14/24 In Process (D5w 1/2ns) 15:20 LUAN RHOADES RESIDENT Oct 14, 2024 17:03
[2024-10-14] MEDS: DOCUSATE SOD 100 MG CAP PO PRN (21:28)
[2024-10-14] MEDS: ATORVASTATIN 20 MG TAB PO SCH (21:42)
[2024-10-15 05:00] VITALS: BP 100/59; PULSE 66; RESP 17; TEMP 97.8; O2SAT 95
[2024-10-15 08:10] VITALS: BP 98/62; PULSE 62; RESP 18; TEMP 99; O2SAT 97
[2024-10-15 10:33] LABS: Alanine Aminotransferase 37 U/L (7-40); Albumin 4.4 g/dL (3.2-4.8); Alkaline Phosphatase 60 U/L (46-116); Anion Gap 8 (5-15); BUN/Creatinine Ratio 11.6 (10.0-20.0); Calcium 9.3 mg/dL (8.7-10.4); Carbon Dioxide 26 mmol/L (20-31); Chloride 104 mmol/L (98-107); Lipase 37 U/L (12-53); Potassium 3.8 mmol/L (3.5-5.1); Sodium 138 mmol/L (136-145); Total Protein 7.2 g/dL (5.7-8.2)
[2024-10-15 10:34] LABS: Bilirubin, Total 1.0 mg/dL (0.2-1.0)
[2024-10-15 10:35] LABS: Blood Urea Nitrogen 8 mg/dL (9-23); Glucose 215 mg/dL (74-106)
[2024-10-15] MEDS: ACETAMINOPHEN 325 MG TAB PO PRN (10:48)
[2024-10-15] MEDS: INSULIN LANTUS (GLARGINE) 1 /0.01ml (100units/ml) SC SCH (11:07)
[2024-10-15 13:00] VITALS: BP 116/77; PULSE 66; RESP 18; TEMP 98; O2SAT 98
[2024-10-15 14:29] VITALS: BP 116/77; PULSE 66; RESP 18; TEMP 98; O2SAT 98
--- NOTE | 2024-10-15 16:29 | DVHDSRES ---
Discharge Summary Date of Admission Resident Creating Document: LESLEE PATIÑO RESIDENT Oct 13, 2024 at 23:06 Date of Discharge: Oct 15, 2024 Admitting Diagnosis #Intractable abdominal pain. Wounds: No wound on admission. Labs/Diagnostic Data: Laboratory Results Test 10/15/24 09:39 10/15/24 00:20 10/14/24 08:53 10/13/24 21:00 Sodium Level 138 mmol/L (136-145) Potassium Level 3.8 mmol/L (3.5-5.1) Chloride Level 104 mmol/L (98-107) Carbon Dioxide Level 26 mmol/L (20-31) Anion Gap 8 (5-15) Blood Urea Nitrogen 8 mg/dL (9-23) Creatinine 0.69 mg/dL (0.550-1.02) Glomerular Filtration Rate Calc 115 mL/min (>90) BUN/Creatinine Ratio 11.6 (10.0-20.0) Serum Glucose 215 mg/dL (74-106) Calcium Level 9.3 mg/dL (8.7-10.4) Total Bilirubin 1.0 mg/dL (0.2-1.0) Aspartate Amino Transferase (AST) 24 U/L (13-40) Alanine Aminotransferase (ALT) 37 U/L (7-40) Alkaline Phosphatase 60 U/L (46-116) Total Protein 7.2 g/dL (5.7-8.2) Albumin 4.4 g/dL (3.2-4.8) Lipase 37 U/L (12-53) POC Glucose 163 mg/dl (70-106) White Blood Count 8.6 10^3/uL (4.4-10.8) Red Blood Count 4.94 10^6/uL (4.0-5.20) Hemoglobin 15.3 g/dL (12.2-16.2) Hematocrit 44.1 % (36.0-46.0) Mean Corpuscular Volume 89.4 fL (80.0-100.0) Mean Corpuscular Hemoglobin 31.1 pg (28.0-32.0) Mean Corpuscular Hemoglobin Concent 34.7 g/dL (32.0-36.0) Red Cell Distribution Width 12.4 % (11.8-14.3) Platelet Count 286 10^3/uL (140-450) Mean Platelet Volume 7.8 fL (6.9-10.8) Neutrophils (%) (Auto) 66.8 % (37.0-80.0) Lymphocytes (%) (Auto) 25.7 % (10.0-50.0) Monocytes (%) (Auto) 6.0 % (0.0-12.0) Eosinophils (%) (Auto) 1.0 % (0.0-7.0) Basophils (%) (Auto) 0.5 % (0.0-2.0) Neutrophils # (Auto) 5.7 10 ^3/uL (1.6-8.6) Lymphocytes # (Auto) 2.2 10 ^3/uL (0.4-5.4) Monocytes # (Auto) 0.5 10 ^3/uL (0-1.3) Eosinophils # (Auto) 0.1 10 ^3/uL (0-0.8) Basophils # (Auto) 0 10 ^3/uL (0-0.2) Nucleated Red Blood Cells 0.0 % Hemoglobin A1c 10.4 % A1C (<5.7) Urine Color Yellow (Yellow) Urine Clarity Clear (Clear) Urine pH 5.0 (5.0-9.0) Urine Specific [place] 1.048 (1.001-1.035) Urine Protein Negative (Negative) Urine Ketones Negative (Negative) Urine Blood Negative /uL (Negative) Urine Nitrite Negative (Negative) Urine Bilirubin Negative (Negative) Urine Urobilinogen Normal mg/dL (Negative) Urine Leukocyte Esterase Negative /uL (Negative) Urine RBC <1 /hpf (0 - 4) Urine Microscopic WBC < 1 /HPF (0-5) Urine Squamous Epithelial Cells Mod /hpf (<5) Urine Bacteria None seen /hpf (None Seen) Urine Glucose 4+ mg/dL (Normal) Urine Test Negative (Negative) Other Laboratory Tests 10/15/24 09:39 10/14/24 08:53 Brief Hx & Hospital Course: PHI: Twila Youngblood is a 34-year-old female with past medical history of diabetes mellitus and hyperlipidemia who presented to [facility] ED with complaint of intractable abdominal pain. Patient reported that she has been experiencing right-sided flank pain, radiating to right upper quadrant, getting worse since 2 days that prompted this visit. She has associated nausea. No history of diarrhea, vomiting, fever, rash. She had an ultrasound done 2 weeks back but did not get a result. Initial labs showed: WBC 9.3, platelets 319, sodium 135, potassium 3.7, BUN 8, creatinine 0.72, glucose 292, calcium 10.4, protein 8.4, albumin 5.1, lipase 80, blood pressure 110/64, heart rate 65, temperature 97.9 F, O2 saturation 98% on room air. Abdomen/pelvis CT showed no obstruction, free intraperitoneal air/fluid sizable inflammatory collections identified. Admission Course: During her admission she reported that abdominal pain has improved after pain medications, nausea resolved. Laboratories showed Lipase 80, patient was started on NPO and antibiotics: Ceftriaxone and Metronidazol. Today, lipase showed 37, and pancreatitis was ruled out.Patient start full liquid diet, she tolerated well. Due to significant symptom improvement the patient will be discharged today. ROS: Constitutional: Complains of chills. HEENT: Denies changes in vision and hearing. Respiratory: Denies shortness of breath and cough Cardiovascular: Denies chest discomfort or palpitations GI: No abdominal pain or nausea. Denies vomiting and diarrhea. : Denies dysuria and urinary frequency. Musculoskeletal: Denies myalgias and joint pain Skin: Denies rash and pruritus. Neurological: Denies dizziness, headache, vision or hearing problems Physical Exam on the day of discharge: General: Patient alert and oriented in person, place and time. Patient following commands. HEENT: Normocephalic, atraumatic, moist mucous membranes Respiratory/pulmonary: Clear lungs bilaterally, no associated crackles or wheezes. Cardiovascular: Normal heart sounds S1 and S2 with no associated murmurs. Scars below the breast, healed. Abdomen: soft, no distended, no tender, Wallace's sign negative. No guarding. Scar in lower abdominal area. Extremities: There is no peripheral edema present at the lower extremities. Peripheral Pulses: 3+ Radial (R). 3+ Radial (L). 3+ Dorsalis pedis (R). 3+ Dorsalis pedis(L) Skin: No rashes or pruritus, there is no sacral edema present at this time. Neurological: Intact cranial nerves with no focal neurologic deficits Problem List during admission: #Intractable abdominal pain. #Pancreatitis ruled out #Gastroenteritis, infectious, possible #Diabetes mellitus with hyperglycemia #Hyperlipidemia Discharge plan: Low carbohydrate diet. F/U with discharge clinic in [address] Motley. Continue Home medications. Goals of care discussed with patient for 20 minutes; Full code Discussed with Dr. Balbuena. Plan discussed with: Patient, patient agrees with discharge plan. Operations or Procedures CT SCAN ABDOMEN AND PELVIS WITHOUT CONTRAST CLINICAL HISTORY: RUQ pain TECHNIQUE: Helical axial images are obtained from the lung bases through the pelvis without oral contrast. No intravenous contrast was administered. Coronal and sagittal reformatted images were generated from thin section reconstructions. One or more of the following radiation dose reduction techniques were used for this examination: automated exposure control, adjustment of the mA and/or kV according to patient size, use of iterative reconstruction technique. COMPARISON: None FINDINGS: LOWER THORAX: Lung bases are grossly clear. ABDOMEN AND PELVIS: Evaluation of visceral and vascular structures is limited due to lack of contrast administration. As visualized, the unenhanced liver, spleen, pancreas and adrenals appear grossly unremarkable. The gallbladder is surgically absent. No hydroureteronephrosis or sizable, obstructing urinary tract calculi identified. No evidence of abdominal aortic aneurysm. No evidence of bowel obstruction. The appendix is not visualized and may be surgically absent. No free intraperitoneal air or fluid identified. No sizable bladder calculus. T-shaped intrauterine device noted within the fundus. No destructive osseous lesions identified. IMPRESSION: No bowel obstruction, free intraperitoneal air/fluid or sizable inflammatory collections identified on this noncontrast examination. Condition at Discharge: Stable Final Diagnosis/Problems List #Intractable abdominal pain. #Pancreatitis ruled out #Gastroenteritis, infectious, possible #Diabetes mellitus with hyperglycemia #Hyperlipidemia Discharge Disposition: Home SNF Discharge Will this Physician continue t: No Discharge Instruct/Medications Diet: See Comment Diet comment: Low Carbohydrate diet Activity: No Restrictions, As Tolerated Follow Up/Referral: Discharge clinic with Dr. Rizzo (Thursday) Medications: Continue with Home medications. No Active Prescriptions or Reported Meds Discharge Statement: "Patient was advised to return to the ER or call 911 if any headaches, dizziness, shortness of breath, chest pain, abdominal pain, bleeding, fevers, or worsening of medical condition. Patient was counseled about treatment plan, medications, possible side effects, patientverbalized understanding. All questions were answered to the best of my ability. This discharge took greater then 30 minutes in planning, reviewing documentation, counseling the patient, and discussing with other team members." ASSESSMENT ASSESSMENT Assessment Intractable abdominal pain Gastroenteritis DM2 with hyperglycemia Addendum Addendum Addendum I was physically present for the peña portions of the service provided to patient by THE RESIDENT. I have reviewed the documentation, discussed the case with resident and agree with the resident's documentation except as noted. Also the patient's clinical case was discussed with the patient's nurse. This medical document was created using an electronic medical record system with computerized dictation system. Although this document has been carefully reviewed, there might still be some phonetic and typographical errors. These areas are purely typographical due to imperfections of the software programs, and do not reflect any compromise in the patient's medical care. Late signature. Date of Service: Oct 15, 2024 Billing Provider: JESENIA BALBUENA MD Common Visit Codes: 55985-IUR/OBS DISCH DAY >30min Secondary Visit Codes: 12747-ZSSMFABB CARE PLAN 30 MINUTES (20 minutes) LESLEE PATIÑO RESIDENT Oct 15, 2024 16:29 JESENIA BALBUENA MD Oct 16, 2024 12:42
[2024-10-15 17:00] VITALS: BP 122/78; PULSE 64; RESP 20; TEMP 98; O2SAT 98
== END 2024-10-15 17:35 | disposition home or self-care (01) | DRG 249 ==
LOC: ER 20:32 → OVERFLOW 23:06 → WEST WING 10-14 02:52 → EAST 10-14 03:28
PROVIDERS: ADMIT Student in an Organized Health Care Education/Training Program; ATTEND Student in an Organized Health Care Education/Training Program
DX: A09 Infectious gastroenteritis and colitis, unspecified (principal); E11.65 Type 2 diabetes mellitus with hyperglycemia; E78.5 Hyperlipidemia, unspecified; Z90.49 Acquired absence of other specified parts of digestive tract; Z83.3 Family history of diabetes mellitus; Z79.4 Long term (current) use of insulin; Z80.3 Family history of malignant neoplasm of breast; Z80.1 Family history of malignant neoplasm of trachea, bronchus and lung
CPT/HCPCS: 36415; 74176; 80053; 81001; 81025; 82962; 83036; 83690; 85025; 96361; 96374; G0378; J1815; J2405; J2470; J3490

== ENCOUNTER 2025-02-26 15:28 | Emergency (ER) | payer MEDICAID ==
[~2025-02-26] VITALS: Ht 149.9 cm; Wt 64.7 kg
[2025-02-26 15:29] VITALS: BP 107/75; PULSE 64; RESP 18; TEMP 98.7; O2SAT 98
== END 2025-02-26 19:15 | disposition left against medical advice (07) ==
LOC: ER 15:28
DX: M25.551 Pain in right hip (principal)